=== PATIENT | male | born 1975 | race Caucasian/White ===

== ENCOUNTER 2017-01-27 11:15 | Emergency (ER) | payer SELFPAY ==
[~2017-01-27] VITALS: Ht 188 cm; Wt 117.9 kg
[2017-01-27 11:15] VITALS: BP_SYST 165
[2017-01-27 12:35] VITALS: BP_SYST 140
== END 2017-01-27 12:35 | disposition home or self-care (01) ==
LOC: SED 11:15
DX: J20.9 Acute bronchitis, unspecified (principal)
CPT/HCPCS: 71020-TC; 99284